=== PATIENT | male | born 1960 | race Caucasian/White ===

== ENCOUNTER 2017-06-07 08:01 | Day surgery (SDC) | payer OTHER ==
[~2017-06-07] VITALS: Ht 175.3 cm; Wt 98.4 kg
[~2017-06-07 08:01] MED LIST: INDOMETHACIN25 MG PO
--- NOTE | 2017-06-07 10:31 | NUR ---
06/07/17 1031 [facility] 1028 - PT ARRIVED TO PACU. OPA IN PLACE. PT NOT RESPONDING AT THIS TIME.
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
== END 2017-06-07 11:25 | disposition home or self-care (01) ==
LOC: OPS 08:01 → DS 08:01 → OPS 08:15
PROVIDERS: Colon & Rectal Surgery
PROC: 0DJD8ZZ Inspection of Lower Intestinal Tract, Via Natural or Artificial Opening Endoscopic (ICD-10-PCS; principal; 2017-06-07 09:45)
DX: K57.32 Diverticulitis of large intestine without perforation or abscess without bleeding (principal); Z98.890 Other specified postprocedural states; Z90.49 Acquired absence of other specified parts of digestive tract; Z87.891 Personal history of nicotine dependence; Z88.1 Allergy status to other antibiotic agents
CPT/HCPCS: 99156; J2250; J2704; J3010; J7120